=== PATIENT | female | born 1980 | race Hispanic/Latino ===

== ENCOUNTER 2020-07-11 20:02 | Emergency (ER) | payer OTHER ==
[2020-07-11] MEDS ORDERED: CLINDAMYCIN HCL 150 MG CAP ONE (20:22)
[2020-07-11] MEDS ORDERED: ACETAMINOPHEN-CODEINE 300/30MG TAB ONE (20:23)
[2020-07-11] MEDS ORDERED: KETOROLAC TROMETHAMINE 60 MG/2 ML VIAL ONE (20:27)
[2020-07-11 20:34] LABS: BASOPHILS % (AUTO) 0.6 % (0.0-5.0); EOSINOPHILS % (AUTO) 1.1 % (0.0-8.0); HEMATOCRIT 40.1 % (36-48); LYMPHOCYTES % (AUTO) 18.4 % (21.0-51.0); MEAN CORPUSCULAR HEMOGLOBIN 29.3 pg (27.0-33.0); MEAN CORPUSCULAR HGB CONC 32.4 g/dL (32.0-36.0); MEAN CORPUSCULAR VOLUME 90.3 fL (79-99); MONOCYTES % (AUTO) 8.3 % (3.0-13.0); NEUTROPHILS % (AUTO) 71.4 % (40.0-77.0); PLATELET COUNT (AUTO) 220 K/uL (130-400); RED BLOOD CELL COUNT(AUTO) 4.44 MIL/uL (4.00-5.50); RED CELL DISTRIBUTION WIDTH 13.2 % (11.0-15.5); WHITE BLOOD COUNT (AUTO) 10.1 K/uL (4.8-10.8)
[2020-07-11 20:42] LABS: CREATININE 0.8 mg/dL (0.5-1.5); POTASSIUM 3.5 mmol/L (3.5-5.1)
[2020-07-11 20:47] LABS: ALBUMIN 3.4 g/dL (3.5-5.0); BILIRUBIN,TOTAL 0.2 mg/dL (0.2-1.0); TOTAL PROTEIN, SERUM 7.7 g/dL (6.0-8.3)
== END 2020-07-11 20:58 | disposition home or self-care (01) ==
LOC: EDH 20:02
DX: L03.313 Cellulitis of chest wall (principal); R79.9 Abnormal finding of blood chemistry, unspecified; Z90.49 Acquired absence of other specified parts of digestive tract; Z90.710 Acquired absence of both cervix and uterus; Z98.890 Other specified postprocedural states
CPT/HCPCS: 36415; 80053; 85025; 96372; 99283; J1885

== ENCOUNTER 2020-12-19 19:52 | Emergency (ER) | payer OTHER ==
[2020-12-19 20:12] LABS: APPEARANCE,URINE Clear (CLEAR); BILIRUBIN,URINE Negative (NEGATIVE); COLOR,URINE Yellow (YELLOW); GLUCOSE, URINE (UA) Negative (NEGATIVE); KETONES,URINE 15 mg/dL (NEGATIVE); LEUKOCYTE ESTERASE ,URINE Negative (NEGATIVE); NITRATE,URINE Negative (NEGATIVE); OCCULT BLOOD,URINE Negative (NEGATIVE); PROTEIN,URINE Negative (NEGATIVE); UROBILINOGEN,URINE 0.2 mg/dL (0.2-1.0)
[2020-12-19 20:15] LABS: HCG,QUAL RESULT NEGATIVE (NEGATIVE)
[2020-12-19] MEDS ORDERED: KETOROLAC TROMETHAMINE 30MG/ML ONE (21:03)
[2020-12-19 21:21] LABS: BASOPHILS % (AUTO) 0.3 % (0.0-5.0); EOSINOPHILS % (AUTO) 0.3 % (0.0-8.0); HEMATOCRIT 39.5 % (36-48); LYMPHOCYTES % (AUTO) 16.7 % (21.0-51.0); MEAN CORPUSCULAR HEMOGLOBIN 29.1 pg (27.0-33.0); MEAN CORPUSCULAR HGB CONC 32.4 g/dL (32.0-36.0); MEAN CORPUSCULAR VOLUME 89.8 fL (79-99); MONOCYTES % (AUTO) 5.7 % (3.0-13.0); NEUTROPHILS % (AUTO) 76.7 % (40.0-77.0); PLATELET COUNT (AUTO) 248 K/uL (130-400); RED CELL DISTRIBUTION WIDTH 13.3 % (11.0-15.5); WHITE BLOOD COUNT (AUTO) 10.1 K/uL (4.8-10.8)
[2020-12-19 21:33] LABS: CREATININE 0.9 mg/dL (0.5-1.5); POTASSIUM 3.5 mmol/L (3.5-5.1)
[2020-12-19 21:34] LABS: INR 0.99 (0.85-1.15); PROTHROMBIN TIME 10.8 SEC (9.6-11.6)
[2020-12-19 21:35] LABS: PARTIAL THROMBOPLASTIN TIME 25.4 SEC (26.3-35.5)
[2020-12-19 21:43] LABS: ALBUMIN 3.6 g/dL (3.5-5.0); BILIRUBIN,TOTAL 0.4 mg/dL (0.2-1.0)
[2020-12-19] MEDS ORDERED: IOHEXOL 350 MG/ML 100ML INFUS..BTL IV ONE (21:51)
[2020-12-19] MEDS ORDERED: ORPHENADRINE CITRATE 30 MG/ML ML ONE (22:48)
== END 2020-12-19 23:08 | disposition home or self-care (01) ==
LOC: EDH 19:52
DX: S20.229A Contusion of unspecified back wall of thorax, initial encounter (principal); S30.1XXA Contusion of abdominal wall, initial encounter; F41.9 Anxiety disorder, unspecified; F32.9 Major depressive disorder, single episode, unspecified; E03.9 Hypothyroidism, unspecified; Z90.49 Acquired absence of other specified parts of digestive tract; Z90.710 Acquired absence of both cervix and uterus; Z98.890 Other specified postprocedural states; Y09 Assault by unspecified means; Y93.89 Activity, other specified; Y92.89 Other specified places as the place of occurrence of the external cause; Y99.8 Other external cause status
CPT/HCPCS: 36415; 71260; 74177; 80053; 81003; 81025; 83690; 84484; 85025; 85610; 85730; 96361; 96374; 96375; 99285; J1885; J2360; Q9967

== ENCOUNTER 2025-03-22 15:16 | Emergency (ER) | payer BC, OTHER ==
[~2025-03-22] VITALS: Ht 170.2 cm; Wt 117.9 kg
[2025-03-22] MEDS: 0.9%NACL 1000ML 1,000 ML IV ONE (16:18)
[2025-03-22 16:23] LABS: IMMATURE GRANULOCYTE ABSOLUTE 0.02 K/uL (0-1); NUCLEATED RED BLOOD CELLS 0.0 % (0.0-0.19); PLATELET COUNT (AUTO) 255 K/uL (130-400); RED BLOOD CELL COUNT(AUTO) 4.39 MIL/uL (4.00-5.50); RED CELL DISTRIBUTION WIDTH 13.1 % (11.0-15.5); WHITE BLOOD COUNT (AUTO) 7.2 K/uL (4.8-10.8)
[2025-03-22 16:28] LABS: CREATININE 0.8 mg/dL (0.5-1.0); GLOMERULAR FILTR. RATE CALC 92.0 mL/min (>90); GLUCOSE,RANDOM 101.0 mg/dL (70-105); SODIUM SERUM 137.0 mmol/L (136-145); UREA NITROGEN, BLOOD 12.0 mg/dL (7-18)
[2025-03-22 16:37] LABS: CREATINE KINASE, TOTAL 68.0 U/L (21-232)
[2025-03-22 17:20] LABS: APPEARANCE,URINE CLEAR (CLEAR); GLUCOSE, URINE (UA) NEGATIVE (NEGATIVE); LEUKOCYTE ESTERASE ,URINE NEGATIVE Leu/uL (NEGATIVE); NITRATE,URINE NEGATIVE (NEGATIVE); OCCULT BLOOD,URINE NEGATIVE (NEGATIVE)
[2025-03-22 17:21] LABS: HCG,QUALITATIVE URINE NEGATIVE (NEGATIVE)
[2025-03-22 17:25] LABS: ADD UA MICROSCOPIC NO
[2025-03-22 17:27] LABS: AMPHET/METH SCREEN,URINE NEGATIVE (NEGATIVE); BARBITURATE SCREEN, URINE NEGATIVE (NEGATIVE); CANNABINOID SCREEN,URINE NEGATIVE (NEGATIVE); COCAINE SCREEN,URINE NEGATIVE (NEGATIVE)
--- NOTE | 2025-03-22 17:29 | HMCIMG ---
EXAM: CR Chest, 1 View. CLINICAL HISTORY: cp COMPARISON: None provided. FINDINGS: LUNGS: There is no mass, infiltrate, or acute pulmonary abnormality. PLEURAL SPACES: No pleural effusion or pneumothorax. MEDIASTINUM: The cardiomediastinal silhouette is within normal limits. BONES: No aggressive appearing osseous lesion seen. IMPRESSION: No acute cardiopulmonary pathology is evident. /Walker
[2025-03-22 18:00] VITALS: BP 123/69; PULSE 83; RESP 18; TEMP 97.9; O2SAT 99
--- NOTE | 2025-03-22 18:10 | ERN ---
ED Note History of Present Illness Stated Complaint: DIZZINESS, ANXIETY, CARDIAC Chief Complaint: Dizzy/Light Headed Time Seen by MD: 15:26 Time Seen by Midlevel: 15:26 Dictation: The patient is a 44-year-old female with history of hysterectomy who presents to the emergency department with complaints of dizziness after she stood up from her computer associated with palpitations. Patient denies any fevers, denies any head trauma or recent falls. Denies any recent illness. Allergies: Coded Allergies: No Known Drug Allergies (Unverified Allergy, Unknown, 07/11/20) Past Medical History Past Medical History: No Pertinent History Surgical History: Other RN Note Reviewed/Agreed w/PFSH: Yes Review of System Dictation Constitutional: Negative for fever,chills, and weight loss Eyes: Negative for injury, pain,redness, and discharge ENT: Negative for injury,pain or swelling Cardiovascular: Negative for chest pain,and edema positive for palpitations Respiratory: Negative for shortness of breath, cough, and wheezing, Abdomen/GI: Negative for abdominal pain, nausea, vomiting, diarrhea, and constipation Back: Negative for injury and pain : Negative for injury, bleeding and discharge MS/Extremity: Negative for injury and deformity Skin: Negative for rash, and discoloration Neuro: Negative for headache, weakness, numbness, tingling, and seizure positive for dizziness Psych: Negative for suicide ideation, homicidal ideation, and hallucinations Initial Vital Sign VS Vital Signs Date Time Temp Pulse Resp B/P (MAP) Pulse Ox O2 Delivery O2 Flow Rate FiO2 03/22/25 15:22 97.9 92 20 92/65 99 Room Air 03/22/25 16:04 0 21 Physical Exam Dictation Vital Signs reviewed General Appearance: Alert, oriented x 3, no acute distress, well developed, nourished. Head and Face: non-traumatic. Eyes: PERRL, pink conjunctivas, eyelid no trauma, anterior chamber with arcus senilis. Ears: Pinnas intact and no signs of trauma or erythema ear canals clear and no discharge TM no erythema Nose: No discharge, no bleeding. Oropharynx: Mouth normal, tongue pink. pharynx clear,no erythema, tonsils no exudates, no abscesses noted, mucous membrane moist Neck: Supple, non-tender, no thyromegaly, no masses, no JVD, no bruits Breast:Deferred Chest:No tenderness, no crepitus, no paradoxical movement, no retractions Lungs:Clear, well-ventilated, symmetric, no rales, no wheezing, no rhonchi, no stridor, good breath sounds bilaterally Heart: Regular rate, regular rhythm, no murmur, no gallops Vascular: no peripheral edema, Abdomen: Soft, positive bowel sounds, nondistended, no guarding, nontender, no rebound, no masses no hepatomegaly, no splenomegaly, no Christie's sign, no hernias. Rectal: Deferred Genital: Deferred Neurological: Normal speech, motor function intact, sensory function intact , upper extremities equal in strength, lower extremities equal in strength, no facial droop Musculoskeletal: Neck nontender, full range of motion, back nontender, full ran ge of motion, Extremities: nontender, full range of motion Skin: Color pink, dry, no turgor, no rash, no lacerations, no abrasions, no contusions. Lymphatic: Deferred Results (Laboratory/Radiology) Laboratory/Radiology Laboratory Tests Test 03/22/25 16:05 03/22/25 16:52 White Blood Count 7.2 K/uL (4.8-10.8) Red Blood Count 4.39 MIL/uL (4.00-5.50) Hemoglobin 12.9 g/dL (12.0-16.0) Hematocrit 38.6 % (36-48) Mean Corpuscular Volume 87.9 fL (79-99) Mean Corpuscular Hemoglobin 29.4 pg (27.0-33.0) Mean Corpuscular Hemoglobin Concent 33.4 g/dL (32.0-36.0) Red Cell Distribution Width 13.1 % (11.0-15.5) Platelet Count 255 K/uL (130-400) Mean Platelet Volume 11.7 fL (7.5-10.5) H Immature Granulocyte % (Auto) 0.3 % (0-1) Neutrophils (%) (Auto) 70.7 % (40.0-77.0) Lymphocytes (%) (Auto) 19.9 % (21.0-51.0) L Monocytes (%) (Auto) 7.0 % (3.0-13.0) Eosinophils (%) (Auto) 1.7 % (0.0-8.0) Basophils (%) (Auto) 0.4 % (0.0-5.0) Neutrophils # (Auto) 5.1 K/uL (1.8-7.7) Lymphocytes # (Auto) 1.4 K/uL (1.0-4.8) Monocytes # (Auto) 0.5 K/uL (0.1-1.0) Eosinophils # (Auto) 0.12 K/uL (0.00-0.70) Basophils # (Auto) 0.03 K/uL (0.00-0.20) Absolute Immature Granulocyte (auto 0.02 K/uL (0-1) Nucleated Red Blood Cells 0.0 % (0.0-0.19) Sodium Level 137 mmol/L (136-145) Potassium Level 3.4 mmol/L (3.5-5.1) L Chloride Level 101 mmol/L (101-111) Carbon Dioxide Level 28 mmol/L (21-32) Blood Urea Nitrogen 12 mg/dL (7-18) Creatinine 0.8 mg/dL (0.5-1.0) Glomerular Filtration Rate Calc 92 mL/min (>90) Random Glucose 101 mg/dL (70-105) Total Calcium 8.9 mg/dL (8.5-10.1) Magnesium Level 1.80 mg/dL (1.80-2.40) Total Creatine Kinase 68 U/L (21-232) Troponin I High Sensitivity 6 ng/L (4-50) Urine Color COLORLESS (YELLOW) Urine Appearance CLEAR (CLEAR) Urine pH 6.5 (5.0-8.0) Urine Specific [place]bon 1.007 (1.001-1.031) Urine Protein NEGATIVE mg/dL (NEGATIVE) Urine Glucose (UA) NEGATIVE mg/dL (NEGATIVE) Urine Ketones NEGATIVE mg/dL (NEGATIVE) Urine Occult Blood NEGATIVE (NEGATIVE) Urine Nitrate NEGATIVE (NEGATIVE) Urine Bilirubin NEGATIVE mg/dL (NEGATIVE) Urine Urobilinogen 0.2 mg/dL (0.2-1.0) Urine Leukocyte Esterase NEGATIVE Kelsy/uL Urine HCG, Qualitative NEGATIVE (NEGATIVE) Urine Opiates Screen NEGATIVE (NEGATIVE) Urine Barbiturates Screen NEGATIVE (NEGATIVE) Urine Phencyclidine Screen NEGATIVE (NEGATIVE) Urine Amphetamines Screen NEGATIVE (NEGATIVE) Urine Benzodiazepines Screen NEGATIVE (NEGATIVE) Urine Cocaine Screen NEGATIVE (NEGATIVE) Urine Marijuana (THC) Screen NEGATIVE (NEGATIVE) CLAYTON: cp ORDERING PHYSICIAN: TIFFANY SMALL PROCEDURE: CXR1VW - CHEST 1VW EXAM: CR Chest, 1 View. CLINICAL HISTORY: cp COMPARISON: None provided. FINDINGS: LUNGS: There is no mass, infiltrate, or acute pulmonary abnormality. PLEURAL SPACES: No pleural effusion or pneumothorax. MEDIASTINUM: The cardiomediastinal silhouette is within normal limits. BONES: No aggressive appearing osseous lesion seen. IMPRESSION: No acute cardiopulmonary pathology is evident. /[place] Labs Reviewed?: Yes EKG: (+) rhythm (Sinus rhythm) EKG Comment: Date:03/22/2025 Time:1607 Ventricular rate:81 IL interval:170 QRS duration:80 QT/QTc:430 EKG interpretation: Sinus rhythm Reviewed by ED Attending no STEMI ED Course ED Course Orders Procedure Category Date Status Time Cbc With Differential LAB 03/22/25 Complete 15:46 Chest 1vw RAD 03/22/25 Resulted 15:46 12 Lead Ekg Tracing- EKG 03/22/25 Logged Technical 15:46 Magnesium LAB 03/22/25 Complete 15:46 Creatine Kinase, Total LAB 03/22/25 Complete 15:46 Troponin I High LAB 03/22/25 Complete Sensitivity 15:46 Urinalysis Profile LAB 03/22/25 Complete 15:46 Basic Metabolic Panel LAB 03/22/25 Complete 15:46 Drug Screen Urine LAB 03/22/25 Complete 15:46 ,Urine Test LAB 03/22/25 Complete 15:46 Orthostatic Vital CPOE 03/22/25 Transmitted Signs 16:09 0.9%Nacl 1000ml (Ns PHA 03/22/25 Complete 1000ml) 16:30 Potassium Bicarb/Cit PHA 03/22/25 Complete Ac 25meq (K-Lyte Ta 18:00 Current Medications Medications (Trade) Dose Ordered Sig/Vito Route PRN Reason Start Time Stop Time Status Last Admin Dose Admin Potassium Bicarbonate (K-Lyte Tablet Eff 25 Meq Tablet.eff) 25 meq ONCE ONCE PO 03/22/25 18:00 03/22/25 18:01 DC 03/22/25 18:01 Sodium Chloride 1,000 ml @ 0 mls/hr ONCE ONCE IV 03/22/25 16:30 03/22/25 16:31 DC 03/22/25 16:18 Vital Signs Date Time Temp Pulse Resp B/P (MAP) Pulse Ox O2 Delivery O2 Flow Rate FiO2 03/22/25 17:30 97.9 83 18 116/73 99 Room Air* 0 21 03/22/25 16:20 87 18 130/89 99 Room Air* 0 21 03/22/25 16:17 84 18 130/88 99 Room Air* 0 21 03/22/25 16:14 77 18 138/78 99 Room Air* 0 21 03/22/25 16:04 84 18 124/84 96 Room Air* 0 21 03/22/25 15:22 97.9 92 20 92/65 99 Room Air Medical Decision Making MDM The patient is a 44-year-old female with history of hysterectomy who presents to the emergency department with complaints of dizziness after she stood up from her computer associated with palpitations. Patient denies any fevers, denies any head trauma or recent falls. Denies any recent illness. CBC showed no leukocytosis, no anemia, chemistry showed normal renal function, mild hypokalemia. X-ray showed no acute pathology. Patient initially gets slightly elevated heart rate and low blood pressure. Patient did receive IV fluids in ambulance and received another L in ER. Negative orthostatic vital signs but this was after the fluids given by EMS. Patient reports she feels better. Denies anymore symptoms. On physical exam patient is in no acute dis tress, nontoxic appearance, neurologically intact we will be discharged to follow up with PCP. Differential diagnosis: Dehydration, orthostatic hypotension, ACS, Need for hospitalization: Patient does not meet criteria for hospitalization. There are no social concerns with this patient. DX & DISP Disposition: Discharge Departure Impression: Primary Impression: Mild dehydration Additional Impression: Palpitations Condition: Stable Additional Instructions: Your labs were unremarkable except for your potassium was a little bit low. Please continue oral hydration at home. Follow up with the primary doctor if anything worsens please return to ER. FOLLOW-UP WITH PRIMARY CARE PROVIDER IN 1 TO 2 DAYS. TAKE MEDICATIONS DIRECT ED HERE IN THE EMERGENCY ROOM. OKAY TO CONTINUE HOME MEDICATIONS UNLESS OTHERWISE DISCUSSED DURING YOUR VISIT IN THE EMERGENCY ROOM TODAY. RETURN TO YOUR NEAREST EMERGENCY ROOM IF SYMPTOMS WORSEN OR IF THERE IS NO IMPROVEMENT. CALL 911 IF YOU NEED IMMEDIATE ASSISTANCE. TAKE TYLENOL [id number] NEEDED AND IF NO CONTRAINDICATIONS ARE PRESENT. INCREASE ORAL HYDRATION. A WOUND CULTURE OR URINE CULTURE WAS ORDERED HERE IN THE EMERGENCY ROOM DEPARTMENT PLEASE FOLLOW-UP WITH PRIMARY CARE PROVIDER AND ADVISE THEM TO GET REPEAT PORTS FROM OUR FACILITY. IF YOU HAD ANY TOPHER WRAP/SPLINTS THAT WERE APPLIED HERE, PLEASE DO NOT REMOVE THEM UNTIL YOU SEE YOUR PRIMARY CARE OR SPECIALTY. Referrals: BARBARA PALENCIA (PCP) Time of Disposition: 18:10 I have reviewed the case, and I agree with, Diagnosis and Plan TIFFANY SMALL [facility] Mar 22, 2025 18:10
--- NOTE | 2025-03-22 21:34 | EKG ---
[facility] Test Date: 2025-03-22 Test Time: 16:07:24 Pat Name: LAZARUS ESQUIVEL Department: ED Room: Gender: F [employer] Worker: [id number] : 1980 Requested By: TIFFANY SMALL Order Number: [id number] Reading MD: Hilario Arreguin Measurements Intervals [place] Rate: 81 P: 36 SC: 170 QRS: 22 QRSD: 80 T: 58 QT: 370 QTc: 430 Interpretive Statements Sinus rhythm No previous ECG available for comparison Electronically Signed On 03-23-2025 19:49:19 CDT by Hilario Arreguin Please click the below link to view image of tracing.
== END 2025-03-22 18:37 | disposition home or self-care (01) ==
LOC: EDH 15:16
DX: E86.0 Dehydration (principal); R00.2 Palpitations; F41.9 Anxiety disorder, unspecified
CPT/HCPCS: 36415; 71045; 80048; 80305; 81003; 81025; 82550; 83735; 84484; 85025; 93005; 99284